=== PATIENT | female | born 1990 | race Caucasian/White ===

== ENCOUNTER 2023-08-13 10:23 | Day surgery (SDC) | payer BC, SELFPAY ==
[2023-08-13] VITALS (9 sets, daily range): BP systolic 103–118; BP diastolic 63–87; PULSE 72–101; RESP 14–16; TEMP 36.3–37.4; O2SAT 96–100; BMI 18.8
--- NOTE | 2023-08-13 10:35 | CT_ITS ---
STUDY: CT ABDOMEN AND PELVIS WITH CONTRAST REASON FOR EXAM: Female, 33 years old. One day history of lower abdominal pain. RADIATION DOSAGE (If Supplied By Facility): CTDIvol = ( 7.5 ) mGy, DLP = ( 236.15 ) mGycm TECHNIQUE: Transaxial images were obtained from the dome of the diaphragm to the symphysis pubis with oral contrast. Oral and amp; IV Gastrografin and amp; 100mL Isovue-300 was administered. Sagittal and coronal images were reconstructed. Individualized dose optimization techniques were used for this CT. COMPARISON: None. FINDINGS: The visualized lung bases are unremarkable. The visualized portions of the heart are within normal limits. Normal liver. Normal gallbladder and extrahepatic biliary system. Normal spleen. Normal pancreas. Normal bilateral adrenal glands. Normal right kidney. Normal left kidney. Normal visualized stomach. Normal small intestine. A moderate amount of fecal material is seen in the right hemicolon. The appendix is visualized and appears normal. Normal abdominal aorta. Normal inferior vena cava. Normal retroperitoneum. Normal urinary bladder. Follicles are seen in both ovaries. Findings suggestive of a 1.4 cm right ovarian follicle regression. Normal abdominal wall. Normal osseous structures. CT/Abdomen/Pelvis WITH Contrast IMPRESSION: Follicles are seen in both ovaries. Electronically Signed: Aries Schultz MD at 12:52 EDT ,
--- NOTE | 2023-08-13 10:37 | ED.VIS.GI ---
HPI HPI - GI History of Present Illness Chief Complaint: Abd Pain Detail of Chief Complaint: Abdominal pain Informant: patient Abdominal Pain/Flank Pain Current Severity: Mild Nausea/Vomiting/Emesis GI Symptom: Positive for Nausea and Vomiting Narrative Narrative: Patient presents with abdominal pain that started yesterday. She describes some nausea and vomited x 1. She has had no appetite. She has had 2 loose stools. Patient states that she went to urgent care today where she had a urine dip and they referred her to the emergency department. Last menstrual period was about 2 weeks ago. She denies dysuria urgency or frequency. She has had no prior abdominal surgeries. She has no medical history. Pain worse with movement. PFSH PFSH Home Medications ?Medication ?Instructions ?Recorded ?Last Taken ?Type doxycycline monohydrate 100 mg 100 mg PO DAILY 08/13/23 Unknown History capsule spironolactone 50 mg tablet 50 mg PO DAILY 08/13/23 Unknown History (Aldactone) Allergy/AdvReac Type Severity Reaction Status Date / Time No Known Allergies Allergy Verified 08/13/23 10:25 Social History Smoking Status: Former smoker ROS ROS ED Review of Systems ROS Unobtainable: other Constitutional Constitutional ED: Reports lethargy; Denies chills, fever(s), sweats or weight loss Eyes Eyes: Denies blurry vision, change in vision or diplopia ENT ENT ED: Denies rhinorrhea or sore throat Cardiovascular Cardiovascular: Denies chest pain, orthopnea or racing heartbeat Respiratory/Chest Respiratory/Chest: Denies cough, dyspnea, dyspnea on exertion, orthopnea or sputum Gastrointestinal Gastrointestinal: Reports abdominal pain, nausea and vomiting; Denies diarrhea Genitourinary Genitourinary ED: Denies dysuria, hematuria or urinary frequency Musculoskeletal Musculoskeletal: Denies arthralgias, back pain, myalgias or neck pain Integumentary Denies abscess, Abrasions or rash Neurologic Neurologic: Denies headache(s) or weakness Psychiatric Psychiatric: Denies anxiety, depression or suicidal thoughts Endocrine Endocrinology: Denies polydipsia, polyphagia or polyuria Hematologic/Lymphatic Hematologic/Lymphatic: Denies easy bleeding, easy bruising or lymphadenopathy Allergic/Immunologic Allergic/Immunologic ED: Denies mouth swelling, tongue swelling or urticaria EXAM Physical Exam Const Vital Signs: 08/13/23 10:24 08/13/23 12:23 Temperature 97.3 F L Temperature Source Temporal Pulse Rate 101 H 75 Respiratory Rate 16 16 Blood Pressure 115/87 H 118/79 Blood Pressure Mean 96 92 Pulse Ox 100 99 Oxygen Delivery Method Room Air Room Air Positive well nourished and well developed General Appearance ED: well developed and NAD HEENT Reports TM's clear and moist mucous membranes normocephalic and atraumatic; Negative for trauma or tenderness Tympanic Membrane ED: Yes TM's clear Eyes PERRL and EOMs intact bilaterally General Eye ED: Negative for pale conjunctiva or scleral icterus Neck no lymphadenopathy, supple and no JVD General: Negative for tenderness Chest Wall inspection of chest normal and palpation of chest normal Chest: Negative for tenderness Resp normal respiratory effort and clear to auscultation bilaterally Effort and Inspection: Negative for respiratory distress or pain with movement Auscultation: Negative for rhonchi, wheezes or diminished lung sounds Cardio regular rate, regular rhythm, S1 normal heart sound, S2 normal heart sound and no murmurs Peripheral Pulses: pulses 2+ throughout GI normal to inspection, nondistended, normoactive bowel sounds, soft to palpation, non-distended and no masses GI Narrative: Hypoactive bowel sounds. Patient has tenderness palpation over the right lower quadrant over McBurney's with guarding. He has some mild tenderness over left lower quadrant with a positive Rovsing's. Back/Spine no CVA tenderness and no thoracic nor lumbar tenderness Extremity normal to inspection General Extremety ED: Negative for edema General Extremity: Negative for edema Neuro oriented x3, CN's II-XII intact bilaterally, no sensory deficits noted and gait normal Sensorium / Orientation: awake, alert, oriented to person, oriented to place and oriented to time Motor Exam: strength 5/5 throughout and strength abnormal Psych mental status grossly normal Skin no rashes or lesions noted and no wounds MDM MDM MDM Narrative Medical decision making narrative: CBC with differential count of 23,000 with hemoglobin of 15.6 and platelet count of 285. Chemistries unremarkable. hCG was negative. Urinalysis was normal. CT scan of the abdomen pelvis obtained initially was read as follicles in both ovaries. I discussed case with radiologist as I had concerned about appendicitis initially was noted that he thought the appendix looked normal. After for further discussion it was felt patient had inflammatory changes in the right lower quadrant that could be consistent with appendicitis and he was at a point in an addendum as such. patient presents with lower abdomen pain that started yesterday. In the differential would be UTI versus appendicitis versus other abnormality. IV line will be established. Patient did not anything for pain. She will have lab work obtained and a CT scan of the abdomen pelvis with IV and p.o. contrast to rule out appendicitis. Also need to rule out other intra-abdominal process. I discussed case with who is the general surgeon on-call who presented to the emergency department to evaluate patient. On his interpretation of the CT scan feels patient has acute appendicitis and clinically I suspect same. I did start patient on Zosyn IV. Patient will go to the OR for definitive care. Lab Data Attestation: I reviewed the patient's lab results. Labs: Laboratory Results - last 24 hr 08/13/23 08/13/23 10:35 10:40 WBC 23.4 H RBC 5.28 Hgb 15.6 H Hct 46.5 MCV 88.1 MCH 29.5 MCHC 33.5 RDW Std Deviation 39.6 RDW Coeff of Rubén 12.2 Plt Count 285 MPV 8.9 Immature Gran % (Auto) 0.700 Neut % (Auto) 86.9 H Lymph % (Auto) 5.2 L [place] % (Auto) 6.8 Eos % (Auto) 0.0 Baso % (Auto) 0.4 Absolute Neuts (auto) 20.3 H Absolute Lymphs (auto) 1.22 Nucleated RBC % 0 Differential Comment COMMENT Diff Path Review May foll Sodium 135 L Potassium 3.1 L Chloride 99 Carbon Dioxide 25.0 Anion Gap 11 BUN 7 Creatinine 0.75 Estim Creat Clear Calc 85.61 Est GFR (MDRD) Af Amer 115 Est GFR (MDRD) Non-Af 95 BUN/Creatinine Ratio 9.3 L Glucose 109 H Calcium 9.5 Total Bilirubin 1.30 H AST 13 L ALT 17 Alkaline Phosphatase 74 Total Protein 9.2 H Albumin 4.7 Globulin 4.5 H Albumin/Globulin Ratio 1.0 Serum , Qual NEGATIVE Urine Color Yellow Urine Clarity Clear Urine pH 6.0 Ur Specific [place] 1.015 Urine Protein 15 H Urine Glucose (UA) Normal Urine Ketones 150 A* Urine Occult Blood 150 H Urine Nitrite Negative Urine Bilirubin Negative Urine Urobilinogen Normal Ur Leukocyte Esterase Negative Urine RBC 0-5 SEEN Urine WBC 0-5 SEEN Ur Squamous Epith Cells 0-5 SEEN Urine Bacteria RARE Urine Mucus 0 SEEN Radiography Diagnostic Testing: Clinical Impression(s) from Imaging Studies Abdomen/Pelvis CT 08/13/23 10:35 IMPRESSION: Follicles are seen in both ovaries. Electronically Signed: Aries Schultz MD at 12:52 EDT , ADDENDUM: 08/13/23 1309 IMPRESSION: undefined Discharge Plan Triage Chief Complaint: Abd Pain ED Provider: Nabil Johnson Dx/Rx/DC Orders Clinical Impression: Abdominal pain, Acute appendicitis Prescriptions: No Action doxycycline monohydrate 100 mg capsule 100 mg PO DAILY spironolactone [Aldactone] 50 mg tablet 50 mg PO DAILY Primary Care Provider: Care Physician,No Primary Referrals: NOT,DEFINED [Non-Staff] - Print Language: Bangladeshi Disposition Disposition: Acute Care [facility]
[2023-08-13 10:44] LABS: Absolute Lymphocyte Count 1.22 X10^3/uL (0.83-4.51); Absolute Neutrophil Count 20.3 X10^3/uL (2.0-7.7); Basophil# 0.09 X10^3/uL; Basophil% 0.4 % (0-1); Eosinophil# 0.01 X10^3/uL; Hematocrit 46.5 % (37-47); Hemoglobin 15.6 g/dL (12.0-15.0); Lymphocyte # 1.22 X10^3/ul (0.83-4.51); Lymphocyte % 5.2 % (19-41); Mean Corp Hgb Conc 33.5 g/dL (32-36); Mean Corpuscular Hgb 29.5 pg (27.0-32.0); Mean Corpuscular Volume 88.1 fL (81-99); Mean Platelet Vol. 8.9 fl (6.2-12.0); Monocyte# 1.58 X10^3/uL; Monocyte% 6.8 % (0-10); NRBC Flagged by Analyzer 0 % (0-5); Neutrophil # 20.33 X10^3/uL (2.7-7.7); Neutrophil % 86.9 % (47-70); POSITIVE DIFFERENTIAL YES; Platelet Count 285 K/mm3 (150-450); RBC Distribution Width CV 12.2 % (11.6-14.6); RBC Distribution Width SD 39.6 fl (35.1-43.9); Red Blood Count 5.28 M/mm3 (4.2-5.4); White Blood Count 23.4 K/mm3 (4.4-11.0)
[2023-08-13 10:45] LABS: Differential Indicated SCAN CRITERIA MET
[2023-08-13] MEDS: 0.9% Normal Saline (1000mL) 1,000 ML 125 ML IV (10:45)
[2023-08-13 10:50] LABS: Internal QC Validated? YES +Cl - CLEAR BKGD; Pregnancy, Serum, hCG Quali. NEGATIVE Negative
[2023-08-13 10:51] LABS: Mucous, Urine 0 SEEN /hpf (<or=2+)
[2023-08-13 10:55] LABS: Color, Urine Yellow (Yellow); Glucose, Dipstick Normal (Normal); Leukocyte Esterase-Dipstick Negative /ul (Negative); Nitrite-Dipstick Negative (Negative); Occult Blood-Urine 150 /ul (Negative); Protein-Dipstick 15 mg/dl (Negative); Specific Gravity, Urine 1.015 (1.002-1.030); Urine Bilirubin Dipstick Negative (Negative); Urine Clarity Clear (Clear); Urine Urobilinogen Normal (Normal)
[2023-08-13 10:59] LABS: AST(SGOT) 13 U/L (15-37); Alanine Aminotransfer ALT/SGPT 17 U/L (13-56); Albumin, Serum 4.7 g/dL (3.2-5.0); Alkaline Phosphatase 74 U/L (45-117); Anion Gap 11 (5-15); BUN 7 mg/dL (7-18); BUN/Creat Ratio 9.3 RATIO (10-20); Calcium,Total 9.5 mg/dL (8.5-10.1); Chloride 99 mmol/L (98-107); Creatinine, Serum 0.75 mg/dL (0.55-1.02); EST Glomerular Filtration Rate 95 mL/min (>60); Est Glom Filt Rate - Afr Amer 115 mL/min (>60); Estimated Creatinine Clearance 85.61 ml/min; Globulin 4.5 g/dL (2.2-4.2); Glucose 109 mg/dL (74-106); Potassium 3.1 mmol/L (3.5-5.1); Protein, Total 9.2 g/dL (6.4-8.2); Sodium Level 135 mmol/L (136-145)
[2023-08-13 11:01] LABS: Ketone-Dipstick 150 mg/dl (Negative)
[2023-08-13 11:07] LABS: White Blood Cells 0-5 SEEN /hpf (0-5)
[2023-08-13 11:08] LABS: Bacteria RARE /hpf (None Seen); Red Blood Cells-Urine 0-5 SEEN /hpf (0-5); Squamous Epithelial Cells - UA 0-5 SEEN /hpf (5-10)
[2023-08-13] MEDS: Ondansetron 4 MG/2 ML Vial IV (13:24)
[2023-08-13] MEDS: Morphine 4 MG/ML Syringe IV (13:24)
[2023-08-13] MEDS: Piperacil/Tazobactam 4.5 GM in 0.9% Normal Saline (100mL MB+) 100 ML IV (13:32)
--- NOTE | 2023-08-13 13:41 | HP.PCM.SX_ITS ---
HPI - General HPI Narrative JUAN F ROSSI, is a 33 F who presents with abdominal pain and nausea and vomiting. The patient reports that the pain started yesterday morning and by yesterday evening she was vomiting. She reports the pain is in the right lower quadrant. It is not radiating. She denies fevers or chills currently. PFSH Medical History no medical history Home Medications ?Medication ?Instructions ?Recorded ?Last Taken ?Type clindamycin phosphate 1 % lotion 1 applic topical BID 08/13/23 Unknown History doxycycline monohydrate 100 mg 100 mg PO DAILY 08/13/23 Unknown History capsule spironolactone 50 mg tablet 50 mg PO DAILY 08/13/23 Unknown History (Aldactone) Allergy/AdvReac Type Severity Reaction Status Date / Time No Known Allergies Allergy Verified 08/13/23 10:25 Surgical History no surgical history Social History Smoking Status: Former smoker ROS Constitutional Constitutional: Reports anorexia; Denies chills, fatigue or fever(s) Eyes Eyes: Denies blurry vision ENT HEENT: Denies abnormal hearing Cardiovascular Cardiovascular: Denies chest pain Respiratory/Chest Respiratory/Chest: Denies cough or dyspnea Gastrointestinal Gastrointestinal: Reports abdominal pain, diarrhea, nausea and vomiting Genitourinary Genitourinary: Denies change in urinary stream Musculoskeletal Musculoskeletal: Denies abnormal gait Integumentary Integumentary: Denies jaundice Neurologic Neurologic: Denies abnormal gait Psychiatric Psychiatric: Denies depression Endocrine Endocrinology: Denies flushing Hematologic/Lymphatic Hematologic/Lymphatic: Denies easy bleeding Vital Signs Vital Signs Vital Signs: 08/13/23 10:24 08/13/23 12:23 08/13/23 13:32 Temperature 97.3 F L 98 F Temperature Source Temporal Oral Pulse Rate 101 H 75 86 Respiratory Rate 16 16 14 Blood Pressure 115/87 H 118/79 114/74 Blood Pressure Mean 96 92 87 Pulse Ox 100 99 99 Oxygen Delivery Method Room Air Room Air Room Air Weight Weight: 110 lb Body Mass Index (BMI) 18.8 Physical Exam Const oriented x3 and no apparent distress Resp normal respiratory effort Cardio regular rate and regular rhythm GI soft to palpation Inspection: Negative for abdominal distention Palpation: tender RLQ Extremity normal to inspection Results Lab / Micro Data 08/13/23 10:35 08/13/23 10:35 Labs: Laboratory Results - last 24 hr 08/13/23 10:35: WBC 23.4 H, RBC 5.28, Hgb 15.6 H, Hct 46.5, MCV 88.1, MCH 29.5, MCHC 33.5, RDW Std Deviation 39.6, RDW Coeff of Rubén 12.2, Plt Count 285, MPV 8.9, Immature Gran % (Auto) 0.700, Neut % (Auto) 86.9 H, Lymph % (Auto) 5.2 L, [place] % (Auto) 6.8, Eos % (Auto) 0.0, Baso % (Auto) 0.4, Absolute Neuts (auto) 20.3 H, Absolute Lymphs (auto) 1.22, Nucleated RBC % 0, Differential Comment COMMENT, Diff Path Review July, Sodium 135 L, Potassium 3.1 L, Chloride 99, Carbon Dioxide 25.0, Anion Gap 11, BUN 7, Creatinine 0.75, Estim Creat Clear Calc 85.61, Est GFR (MDRD) Af Amer 115, Est GFR (MDRD) Non-Af 95, BUN/Creatinine Ratio 9.3 L, Glucose 109 H, Calcium 9.5, Total Bilirubin 1.30 H, AST 13 L, ALT 17, Alkaline Phosphatase 74, Total Protein 9.2 H, Albumin 4.7, Globulin 4.5 H, Albumin/Globulin Ratio 1.0, Serum , Qual NEGATIVE 08/13/23 10:40: Urine Color Yellow, Urine Clarity Clear, Urine pH 6.0, Ur Specific [place] 1.015, Urine Protein 15 H, Urine Glucose (UA) Normal, Urine Ketones 150 A*, Urine Occult Blood 150 H, Urine Nitrite Negative, Urine Bilirubin Negative, Urine Urobilinogen Normal, Ur Leukocyte Esterase Negative, Urine RBC 0-5 SEEN, Urine WBC 0-5 SEEN, Ur Squamous Epith Cells 0-5 SEEN, Urine Bacteria RARE, Urine Mucus 0 SEEN Imaging Radiology Impression Abdomen/Pelvis CT 08/13/23 10:35 IMPRESSION: Follicles are seen in both ovaries. Electronically Signed: Aries Schultz MD at 12:52 EDT , ADDENDUM: 08/13/23 1309 IMPRESSION: undefined Assessment & Plan Assessment/Plan (1) Acute appendicitis: QUALIFIERS: Acute appendicitis type: unspecified acute appendicitis type Qualified Code(s): K35.80 - Unspecified acute appendicitis PLAN: The patient has a significantly elevated white count and right lower quadrant pain that started yesterday accompanied by nausea and vomiting. CT scan appears to show a thick-walled appendix overlying the right iliac artery. There is also some inflammation around the area. Her story seems to be consistent with acute appendicitis as well. I recommended laparoscopic appendectomy. I discussed appendectomy with the patient in detail. I discussed the risks including but not limited to bleeding, infection, injury other organs such as bowel, bladder or ureter. Patient understands all the risks and is willing to proceed. She is receiving antibiotics in the emergency room. Patient will be admitted after surgery for observation and likely discharge tomorrow morning. Due to scheduling the surgery may be done by my partner Dr Issa. As she is available currently. Max Cat MD Pager: [facility] [address] [place] [address], [address] [place] [address] Office:
--- NOTE | 2023-08-13 14:30 | APP_PTH ---
PATIENT: JUAN F ROSSI [place] [facility] [id number] AGE/SX: 33/F ROOM: RE08/13/[address]: Dr. Max Cat MD : 1990 BED: DIS: 08/13/2023 SPEC #: [id number] RECD: 08/13/23 18:29 STATUS: CHAD REMacrina #: [id number] ROWDY: 08/13/23 14:[address]: Max Cat DEPT: SURGICAL PATHOLOGY RECD BY: Beatrice Ahumada ENTERED: 08/16/23 11:37 SP TYPE: APPENDIX OTHR DR: No Primary Care Phys Tissues: Appendix, NOS Procedures: Surgery Specimen Level III HEADER OPERATION: Laparoscopic appendectomy PRE-OP DIAGNOSIS: Acute appendicitis TISSUE SUBMITTED: Appendix MICROSCOPIC DIAGNOSIS Appendix, appendectomy: Acute necrotizing appendicitis. Acute serositis. AM/mr 08/17/2023 MICROSCOPIC DESCRIPTION Slides are reviewed. GROSS DESCRIPTION Received in fixative is one container labeled with the patient's name and designated appendix. The specimen consists of C shaped appendix measuring 6.5 cm in length and up to 1.0 cm in diameter. The attached periappendiceal adipose tissue measures up to cm in width. The serosa is congested, hemorrhagic and covered with steen purulent exudate. No obvious perforation is identified. Mucosa is congested. The lumen is filled with fecal material. No fecalith is identified. Library Clerk sections are submitted in one cassette. / LIANG: 08/16/23 TC:2 CPT: 13959
[2023-08-13] MEDS: Bupiv/Epi 0.25% 30 ML Vial (15:00)
--- NOTE | 2023-08-13 15:04 | PCM.OPRPT ---
Report of Operation Date of Procedure: 08/13/23 Pre-Operative Diagnosis: Acute appendicitis Post-Operative Diagnosis: Same Surgery/Procedure Performed:: Laparoscopic appendectomy Surgeon: Maribeth Issa Type of Anesthesia: General/Supplemental Anesthesiologist: Aleks Estrada Special Medications: Zosyn 3.375 g IV given in the ER for acute appendicitis Specimen's removed: Appendix Estimated Blood Loss (mL): < 10 cc Description of Procedure: Indications: 33-year-old female presented to the ER with new right lower quadrant pain this morning. On workup she was found to have acute appendicitis on CT and a leukocytosis of 23. Patient was started on antibiotics in the ER for acute appendicitis-Zosyn IV Description of the procedure: The patient was placed on operating table in supine position. General anesthesia was induced. A timeout was completed verifying correct patient, procedure, position and special equipment prior to beginning procedure. Abdomen was prepped and draped in usual sterile fashion. Incision was made in the natural skin line below the umbilicus with a 15 blade scalpel. The fascia was elevated and incised. Entry into the peritoneum was confirmed visually and no bowel was noted in the vicinity of the incision. The Brink trocar was placed under direct vision. Abdomen insufflated with a pressure of 12-15 mmHg. Patient tolerated insertion well. The scope was inserted and the abdomen inspected. No injuries from initial trocar placement were noted. Minimal amount of fluid was seen in the right lower quadrant. An direct visualization 2 -5 mm trocars were placed one above the symphysis pubis and below the hairline and one in the left lower quadrant lateral to the rectus muscle. Care is taken to avoid injury to the bladder and inferior epigastric vessels. The table was placed in Trendelenburg position with the right side elevated. The appendix was grasped with atraumatic grasper and elevated. It was noted to be inflamed with seropurulent exudate. A window was developed in the mesoappendix at the point between the base of the appendix and the cecum. An endoscopic 45 mm linear cutting stapler blue load was then used to divide and staple the base of the appendix. Enseal was used to divide the mesoappendix. The appendix was withdrawn into the Brink trocar after being placed endoscopically retrieval bag. Appendix was sent to pathology. The appendiceal stump was then irrigated and hemostasis was assured. Fluid was suctioned no other pathology was identified. Secondary trochars were removed under direct visualization. No bleeding was noted trocar sites. The laparoscope withdrawn and the umbilical trocar removed. The abdomen was allowed to collapse. Local anesthesia of 20 mL of 0.5% Marcaine was used at the incision sites. The umbilical trocar site was closed with the [id number] 0 Vicryl suture. The skin was closed using sutures of 4-0 Monocryl and Steri-Strips/Opsites. The patient was extubated. The patient tolerated the procedure well and was taken to the postanesthesia care unit in stable condition. Complications none
--- NOTE | 2023-08-13 15:06 | EX.PCM.DISCH ---
Discharge Instructions Diet Discharge Diet: Light diet - advance as tolerated Activity Discharge Activity: May Not Drive (while taking narcotic pain medications.) May shower in (days): 1 Lifting Restrictions: no lifting >20 lbs x 2 wks, no strenuous exercise for 4 wks Dressing / Incision Call your doctor if your incision/area has: Continuous Slow Oozing, Sudden Increased Bleeding, Increased Pain/ Swelling, Increased Redness, Foul Smelling Discharge and Swelling at the incision site Call your doctor if you observe: Fever of 101 or Higher Remove Dressing in: 2 days Cleanse incision/area with: Soap & Water Additional Dressing/Incision Instructions:: Steri-Strips will fall off in 7 to 10 days, if they do not fall off okay to remove after 10 days. Follow Up Care Please Follow Up With: Maribeth Issa MD When: Call the office for a follow-up appointment 2 weeks; after 5 PM and on the weekends call [phone] with any concerns. Test Results: Test results from this visit will be discussed in further detail at your follow-up appointment, if applicable. Discharge Plan Admission Attending Provider: Max Cat Primary Care Provider: Care Physician,No Primary Instructions Print Language: Vietnamese Discharge Orders/Prescriptions Prescriptions: New oxycodone-acetaminophen 5-325 mg tablet 1 - 2 tab PO Q6H PRN (Reason: pain) 3 Days Qty: 14 0RF Continued doxycycline monohydrate 100 mg capsule 100 mg PO DAILY spironolactone [Aldactone] 50 mg tablet 50 mg PO DAILY clindamycin phosphate 1 % lotion 1 applic topical BID Referrals / Follow Up: NOT,DEFINED [Non-Staff] - Disposition Disposition (needs filled in before D/C Order can be placed): Home, Self Care
[2023-08-13] MEDS: Lactated Ringers 1,000 ML 15 ML IV (15:32)
[2023-08-13] MEDS: Acetaminophen 325 MG Tablet 650 MG PO (16:23)
[2023-08-13] MEDS: oxyCODONE 5 MG Tablet PO (16:23)
[2023-08-16 13:56] LABS: Pathologist Review Reviewed
== END 2023-08-13 17:57 | disposition home or self-care (01) ==
LOC: ED 13:18 → SDC 13:33 → AC 13:35
PROVIDERS: Surgery; Emergency Provider Emergency Medicine; Visit Provider Surgery
PROC: 0DTJ4ZZ Resection of Appendix, Percutaneous Endoscopic Approach (ICD-10-PCS; CPT 44970; principal; 2023-08-13 14:10)
DX: K35.80 Unspecified acute appendicitis (principal); Z87.891 Personal history of nicotine dependence; Z79.899 Other long term (current) drug therapy
CPT/HCPCS: 44970; 00840; 74177; 80053; 81001; 84703; 85025; 88304; 99283; J7030; Q9967; A4216; C1760; J2405